=== PATIENT | male | born 1975 | race Caucasian/White ===

== ENCOUNTER 2021-05-25 08:33 | Day surgery (SDC) | payer BC ==
[2021-05-18 14:57] LABS: BASOPHILS % (AUTO) 0.5 % (0-1); EOSINOPHILS # (AUTO) 0.1 X10'3 (0-0.9); EOSINOPHILS % (AUTO) 1.8 % (0-6); LYMPHOCYTES # (AUTO) 0.8 X10'3 (1.1-4.8); LYMPHOCYTES % (AUTO) 11.3 % (21-51); MEAN CORPUSCULAR HEMOGLOBIN 31.1 PG (27.0-31.0); MEAN CORPUSCULAR HGB CONC 34.1 g/dL (33.0-36.5); MEAN CORPUSCULAR VOLUME 91.3 FL (78-98); MEAN PLATELET VOLUME 7.4 FL (7.4-10.4); MONOCYTES # (AUTO) 0.5 X10'3 (0-0.9); MONOCYTES % (AUTO) 7.2 % (2-12); NEUTROPHILS # (AUTO) 5.8 X10'3 (1.8-7.7); NEUTROPHILS % (AUTO) 79.2 % (42-75); PRE OP HEMATOCRIT 45.9 % (42.0-52.0); PRE OP HEMOGLOBIN 15.7 g/dL (14.0-17.9); PRE OP PLATELET COUNT 233 X10'3 (140-440); RED BLOOD COUNT 5.03 X10'6 (4.70-6.10); RED CELL DISTRIBUTION WIDTH 12.7 % (11.5-14.5)
[2021-05-18 14:58] LABS: ALBUMIN 3.2 G/DL (3.4-5.0); ALBUMIN/GLOBULIN RATIO 0.8 (1.1-1.5); ALKALINE PHOSPHATASE 90 IU/L (46-116); BLOOD UREA NITROGEN 14 MG/DL (7-18); BUN/CREATININE RATIO 10.7 (5.4-32.0); CALCIUM 8.6 MG/DL (8.5-10.1); CHLORIDE 105 MMOL/L (99-107); CREATININE 1.31 MG/DL (0.60-1.10); PRE OP ALT 31 U/L (30-65); PRE OP ANION GAP 8 (8-16); PRE OP AST 13 U/L (10-37); PRE OP BILIRUB, TOTAL 0.8 MG/DL (0.0-1.0); PRE OP GLUCOSE 103 MG/DL (70-104); PRE OP POTASSIUM 3.9 MMOL/L (3.4-5.1); PRE OP SODIUM 140 MMOL/L (135-145); TOTAL PROTEIN 7.4 G/DL (6.4-8.2); eGFR 59 ML/MIN
[~2021-05-25] VITALS: Ht 185.4 cm; Wt 95.1 kg
[2021-05-25] VITALS (9 sets, daily range): BP systolic 110–144; BP diastolic 67–88
[~2021-05-25 08:33] MED LIST: NO HOME MEDS; cefazolin/dext.iso 2gm/100ml IV ONE; famotidine 20mg tablet PO ONE; ringers solution, lacted 1,000 ML IV SCH
[2021-05-25] MEDS ORDERED: ondansetron/PF 4mg/2ml inj IV PRN (11:05)
[2021-05-25] MEDS ORDERED: proCHLORperazine 10 MG/2 ml inj IV PRN (11:05)
[2021-05-25] MEDS ORDERED: morphine 4 MG/ML inj SYRINge IV PRN (11:05)
[2021-05-25] MEDS ORDERED: meperidine/PF 25mg/ml syringe IV PRN ×3 (11:05)
[2021-05-25] MEDS ORDERED: ringers solution, lacted 1,000 ML IV SCH (11:05)
[2021-05-25] MEDS ORDERED: morphine 2 MG/ML inj. syringe IV PRN (11:05)
[2021-05-25] MEDS ORDERED: LIDOcaine 1% 30ml preserv. free vial ONE (11:10)
[2021-05-25] MEDS ORDERED: BUPIVAcaine/PF 2.5mg/ml (0.25%) 10ml vial ONE (11:10)
[2021-05-25] MEDS ORDERED: sevoflurane 250ml liquid IH ONE (11:12)
[2021-05-25] MEDS ORDERED: BUPIVAcaine 0.5% inj/PF 30 ML ONE (11:12)
[2021-05-25] MEDS ORDERED: rocuronium 10mg/ml inj IV ONE (11:16)
[2021-05-25] MEDS ORDERED: fentaNYL/PF 50MCG/1 ML 2ML syringe ONE (11:16)
[2021-05-25] MEDS ORDERED: propofol inj 20 ML IV ONE (11:16)
[2021-05-25] MEDS ORDERED: midazolam 1 mg/ML 2ml injection ONE (11:16)
[2021-05-25] MEDS ORDERED: dexamethasone sod phosphate 4mg/ml inj. ONE (11:27)
[2021-05-25] MEDS ORDERED: ondansetron/PF 4mg/2ml inj ONE (11:28)
[2021-05-25] MEDS ORDERED: neostigmine methylsulfate 1 MG/ML 10ml vial ONE (12:08)
[2021-05-25] MEDS ORDERED: glycopyrrolate 0.2mg/ml inj ONE (12:08)
--- NOTE | 2021-05-25 12:26 | NUR ---
ASSUME CARE PT AWAKE ALERT VSS NO DISTRESS RR AT EASE, DENIES PAIN AT THIS TIME. ELIZA X3 TO ABD INTACT IV TO RIGHT HAND INTACT CONT TO MONITOR Addendum: 05/25/21 at 1257 by Mellissa Cervantes RN Amended: Links added.
[2021-05-25] MEDS ORDERED: HYDROcodone/acetaminophen 5mg/325mg tablet PO PRN ×2 (12:45)
--- NOTE | 2021-05-25 13:16 | NUR ---
PT AWAKE ALERT VSS NO DISTRESS, STATES FEELING BETTER NADYA PO'S. STATES WOULD LIKE TO GO HOME. INSTR ON VOIDING PRIOR TO DC HOME. DC INSTR GIVEN NO ?'S OR CONCERNS. Addendum: 05/25/21 at 1320 by Mellissa Cervantes RN Amended: Links added.
--- NOTE | 2021-05-25 14:20 | NUR ---
PT UP AMBULATING TO BATHROOM UNABLE TO VOID PO'S PROVIDED, CONT TO MONITOR. NO DISTRESS ASSIST PT WITH DRESSING HE'S WANTING TO GO HOME INSTR NOT TILL VOID. Addendum: 05/25/21 at 1431 by Mellissa Cervantes RN Amended: Links added.
== END 2021-05-25 15:26 | disposition home or self-care (01) ==
LOC: PAS 08:33
PROVIDERS: ATTEND Surgery
DX: K40.90 Unilateral inguinal hernia, without obstruction or gangrene, not specified as recurrent (principal); Z98.890 Other specified postprocedural states; Z72.89 Other problems related to lifestyle; Z79.899 Other long term (current) drug therapy; Z80.1 Family history of malignant neoplasm of trachea, bronchus and lung; Z80.8 Family history of malignant neoplasm of other organs or systems
CPT/HCPCS: 36415; 49650; 80053; 82948; 85025; 93005; C1781; J1100; J2001; J2175; J2250; J2405; J2704; J2710; J3010; J3490; S2900; U0003; U0005; Z7506; Z7508; Z7512; A4215; A4618; J7120